=== PATIENT | female | born 1965 | race Caucasian/White ===

== ENCOUNTER 2020-05-15 11:26 | Outpatient (REF) | payer OTHER, SELFPAY ==
[2020-05-15 20:12] LABS: Hemoglobin A1C 5.4 % (<5.7)
== END 2020-05-15 11:46 ==
LOC: NCHCN 11:26
PROVIDERS: PCP Physician Assistant; Visit Provider Physician Assistant
DX: R73.9 Hyperglycemia, unspecified (principal)
CPT/HCPCS: 83036